=== PATIENT | male | born 1995 ===

== ENCOUNTER 2021-03-05 05:10 | Inpatient (IN) | payer MEDICAID ==
[~2021-03-05] VITALS: Ht 200.7 cm; Wt 87.6 kg
[2021-03-05 05:30] VITALS: BP 96/56
[2021-03-05] MEDS ORDERED: BISACODYL 10 MG SUPP PR PRN (05:30)
[2021-03-05] MEDS ORDERED: ONDANSETRON ODT 4 MG PO PRN (05:30)
[2021-03-05] MEDS ORDERED: DOCUSATE 100 MG CAPSULE PO PRN (05:30)
[2021-03-05] MEDS ORDERED: POLYETHYLENE GLYCOL 17 GM PACKET PO PRN (05:30)
[2021-03-05 07:16] VITALS: BP 112/70
[2021-03-05] MEDS ORDERED: BUSP10TA PO (12:02)
[2021-03-05] MEDS ORDERED: RISP1TAB90 PO (12:02)
[2021-03-05] MEDS ORDERED: NICOTINE 14MG/24 HR PATCH.TD24 ONE (13:15)
[2021-03-05] MEDS: NICOTINE 14MG/24 HR PATCH.TD24 TD SCH (13:20)
[2021-03-05] MEDS: PALIPERIDONE 3 MG TAB.ER.24 PO SCH (15:36)
[2021-03-05 19:04] LABS: MICROSCOPIC NOT IND
[2021-03-05 19:45] VITALS: BP 115/67
[2021-03-06 06:55] LABS: CHOL/HDL RATIO 2.6; FREE T4 (FREE THYROXINE) 1.08 ng/dL (0.76-1.46); LDL/HDL RATIO 1.4 (0.5-3.0)
[2021-03-06 07:34] VITALS: BP 92/56
[2021-03-06] MEDS: NICOTINE 14MG/24 HR PATCH.TD24 TD SCH (08:28)
[2021-03-06] MEDS: PALIPERIDONE 3 MG TAB.ER.24 PO SCH (08:28)
[2021-03-06] MEDS ORDERED: NICOTINE 14MG/24 HR PATCH.TD24 TD SCH (09:00)
[2021-03-06 18:48] VITALS: BP 117/65
[2021-03-07 07:32] VITALS: BP 111/72
[2021-03-07] MEDS: PALIPERIDONE 3 MG TAB.ER.24 PO SCH (08:44)
[2021-03-07] MEDS: NICOTINE 14MG/24 HR PATCH.TD24 TD SCH (08:46)
[2021-03-07] MEDS ORDERED: HYDROXYZINE PAMOATE 50MG CAP ONE (12:49)
[2021-03-07] MEDS: HYDROXYZINE PAMOATE 50MG CAP PO PRN ×2 (12:51→20:26)
[2021-03-07 19:37] VITALS: BP 111/71
[2021-03-08 07:30] VITALS: BP 106/65
[2021-03-08] MEDS: PALIPERIDONE 3 MG TAB.ER.24 PO SCH (09:21)
[2021-03-08] MEDS: NICOTINE 14MG/24 HR PATCH.TD24 TD SCH (09:22)
[2021-03-08] MEDS ORDERED: PALIPERIDONE PALMITATE 234 MG/1.5 ML IM ONE (19:00)
[2021-03-08 19:43] VITALS: BP 124/75
[2021-03-09 07:30] VITALS: BP 106/68
[2021-03-09] MEDS: PALIPERIDONE 3 MG TAB.ER.24 PO SCH (08:23)
[2021-03-09] MEDS: NICOTINE 14MG/24 HR PATCH.TD24 TD SCH (08:23)
[2021-03-09] MEDS ORDERED: PALIPERIDONE PALMITATE 234 MG/1.5 ML IM ONE (09:00)
[2021-03-09 19:34] VITALS: BP 124/63
[2021-03-09] MEDS: HYDROXYZINE PAMOATE 50MG CAP PO PRN (20:37)
[2021-03-10 07:30] VITALS: BP 120/81
[2021-03-10] MEDS: PALIPERIDONE 3 MG TAB.ER.24 PO SCH (08:58)
[2021-03-10] MEDS: NICOTINE 14MG/24 HR PATCH.TD24 TD SCH (08:58)
[2021-03-10] MEDS ORDERED: PALI234D IM (10:03)
[2021-03-10] MEDS ORDERED: HYDR50CA2 PO (10:03)
[2021-03-10] MEDS ORDERED: NICO-486 TD (10:03)
[2021-03-10] MEDS ORDERED: PALI3TAB11 PO (10:03)
== END 2021-03-10 15:46 | disposition home or self-care (01) | DRG 885 ==
LOC: 3E 05:13
PROVIDERS: ADMIT Psychiatry & Neurology Psychosomatic Medicine; ATTEND Psychiatry & Neurology Psychosomatic Medicine
DX: F20.0 Paranoid schizophrenia (principal); T39.1X2A Poisoning by 4-Aminophenol derivatives, intentional self-harm, initial encounter; F11.20 Opioid dependence, uncomplicated; F15.20 Other stimulant dependence, uncomplicated; F10.10 Alcohol abuse, uncomplicated; Z20.822 Contact with and (suspected) exposure to COVID-19; F17.210 Nicotine dependence, cigarettes, uncomplicated; F63.9 Impulse disorder, unspecified; F12.90 Cannabis use, unspecified, uncomplicated; T43.592A Poisoning by other antipsychotics and neuroleptics, intentional self-harm, initial encounter; Y92.89 Other specified places as the place of occurrence of the external cause; Z91.14 Patient's other noncompliance with medication regimen; Z91.5 Personal history of self-harm
CPT/HCPCS: 36415; 71045; 80061; 81003; 82607; 84439; 84443; U0005; U0003